=== PATIENT | female | born 1950 | race Caucasian/White ===

== ENCOUNTER → 2021-05-04 | Outpatient (CLI) | payer MEDICARE, OTHER ==
--- NOTE | 2021-05-04 12:57 | Diagnostic Imaging Report ---
INDICATION: Pain across the top of the right foot. TIME OF EXAM: 11:21 AM. TECHNIQUE: Three views of the right foot were obtained. FINDINGS: The metatarsals are intact. The phalanges are intact. The midfoot and hindfoot are unremarkable apart from a moderate-sized plantar calcaneal spur. No fractures are seen. IMPRESSION: No acute bony abnormality is detected. Dictated by: Dictated on workstation # [id number]
== END ==
LOC: ORTHO 10:52
PROVIDERS: ATTEND Orthopaedic Surgery
DX: M79.671 Pain in right foot (principal)
CPT/HCPCS: 73630; G0463; 99212

== ENCOUNTER → 2021-12-23 | Outpatient (CLI) | payer MEDICARE, OTHER ==
--- NOTE | 2021-12-23 11:38 | Diagnostic Imaging Report ---
PROCEDURE: MRI right joint lower extremity without contrast. TECHNIQUE: Multiplanar, multisequence non contrast-enhanced MRI of the right lower extremity was accomplished. INDICATION: Anterior tibialis tendinitis. COMPARISONS: None available. FINDINGS: TENDONS: The anterior tibialis tendon is completely torn and the proximal stump is retracted approximately 4 to 5 cm into the distal lower leg, just above the tibiotalar joint. Extensor digitorum longus and extensor hallucis longus are intact. Peroneus longus and brevis tendons are intact. Posterior tibialis, flexor digitorum longus and flexor hallus longus are normal. Achilles is intact. LIGAMENTS: Anterior and posterior distal tibiofibular ligaments are intact. Anterior talofibular, calcaneofibular and posterior talofibular ligaments are also normal. Medial deltoid ligaments complex is intact. Spring ligament is normal. BONES AND CARTILAGE: No osteochondral lesion of the talar dome. No fracture or stress fracture. The articular cartilage of the tibiotalar and posterior subtalar joints are normal. SOFT TISSUES: No evidence of plantar fasciitis. No abnormal soft tissue scar/fibrosis within the tarsal canal/sinus tarsi or tarsal tunnel. No ankle joint effusion. IMPRESSION: 1. Complete tear of the anterior tibialis tendon has proximal stump retracted 4 to 5 cm and located in the distal lower leg just above the tibiotalar joint. Dictated by: Dictated on workstation # [id number]
== END ==
LOC: RAD 08:16
PROVIDERS: ATTEND Podiatrist Foot & Ankle Surgery
DX: S86.211A Strain of muscle(s) and tendon(s) of anterior muscle group at lower leg level, right leg, initial encounter (principal); X58.XXXA Exposure to other specified factors, initial encounter
CPT/HCPCS: 73721